=== PATIENT | female | born 1985 | race Caucasian/White ===

== ENCOUNTER → 2019-06-05 15:39 | Outpatient (CLI) | payer MEDICAID, SELFPAY ==
--- NOTE | 2019-06-05 15:44 | US_ITS ---
PROCEDURE: US TRANSVAGINAL CLINICAL INDICATION: pelvic pain/ ovarian cyst COMPARISON: No exams were available for comparison FINDINGS: The uterus is 10 by by 6 cm with a combined endometrial thickness 5 mm. IUD present. There is an IUD present which appears to be in satisfactory position. Endometrium is somewhat difficult to evaluate with an IUD in place. The right ovary is 3 x 2 cm containing small follicles with blood flow present. The left ovary is 4 x 3 cm also containing small follicles with blood flow present. There is a 16 mm left ovarian cyst. No cul-de-sac fluid evident. IMPRESSION: IUD present. Small left ovarian cyst otherwise negative pelvic ultrasound Dictated by: Anastacio Langford MD 06/05/2019 18:08 Electronically signed by Anastacio Langford MD in [place] 06/05/2019 18:08
== END ==
PROVIDERS: PCP Pediatrics; Visit Provider Nurse Practitioner Obstetrics & Gynecology
DX: R10.2 Pelvic and perineal pain (principal)
CPT/HCPCS: 76830

== ENCOUNTER 2019-08-05 13:54 | Emergency (ER) | payer MEDICAID, SELFPAY ==
[2019-08-05 13:56] VITALS: BP 147/87; PULSE 88; RESP 19; TEMP 37.1; O2SAT 100; BMI 23.8
[2019-08-05 14:34] LABS: UTC Influenza A Antigen Negative (Negative); UTC Strep Screen (Rapid) Negative (Negative)
[2019-08-05 14:35] LABS: UTC Influenza B Antigen Negative (Negative)
--- NOTE | 2019-08-05 14:38 | HMH.EDUTC ---
[facility] [place] Clinical Impression: Viral syndrome Disposition: Home, Self-Care Condition on Discharge: Good Instructions: Sore Throat, DI for Viral Syndrome, DI for Fever (Symptom) -- Adult, Preventing the Spread of Coronavirus Discharge Instructions Additional Instructions: Make sure to go home and self isolate away from family and other people, if you have a room that has a bathroom in that is where you need to stay and have someone bring you food in disposable dishes. *You was given a card with instructions for COVID19 make sure to read and follow those instructions *They will contact you in the next couple of days with your test results. No work until results are back and and are negative and you are fever free for 24 hours without medication *Follow up with family doctor if needed Straight to ER if any life threatening symptoms Referrals: Keshia Silva [Primary Care Provider] - As needed Forms: Work/School Release Time of Disposition: 15:13 Medical Decision Making - Sharan Inquiry Pt receiving controlled substance: No Sharan was queried for this patient: No Vital Signs: 08/05/19 13:56 Temperature 98.7 F Temperature Source Oral Pulse Rate [Radial] 88 Respiratory Rate 19 Blood Pressure [Right Arm] 147/87 H Blood Pressure Mean [Right Arm] 107 Blood Pressure Source [Right Arm] Automatic Cuff Blood Pressure Position [Right Arm] Sitting 02 Sat by Pulse Oximetry 100 Oxygen Delivery Method Room Air - Lab Data Lab results reviewed: Yes: I reviewed the patient's lab results. Lab Results 08/05/19 14:18: Influenza Type A Ag Negative, Influenza Type B Ag Negative 08/05/19 14:18: Strep Scn Rapid Clinic Negative Orders (Tests/Meds): ORDERS Category Date Time Status SARS-CoV-2, TODD Stat Lab 08/05/19 14:32 Ordered Strep Screen Confirmation Stat Micro 08/05/19 14:18 [place] [facility] [place] - General Stated complaint: DEAN,stiffness Time Seen by Provider: 08/05/19 14:10 Mode of Arrival: Ambulatory Source of Information: Patient Limitations: No Limitations Description of Symptoms (Recalled from Triage Doc. by RN): stiff neck, fever, chills, body aches HEENT Symptoms (Recalled from RN notes): No Resp Symptoms (Recalled from RN notes): No Skin Symptoms (Recalled from RN notes): No MS Symptoms (Recalled from RN notes): Yes Functional Status (Recalled from RN notes): wnl - History of Present Illness Provider Complaint: Patient states that she started feeling bad a little while back but around 08/01 she started having body ache, muscle tension and fever State that her throat has been sore and and she has been having fever on and off States that over the last few days she is feeling worse, States that she is feeling tired and and achy all over States that she has been having muscle aches up in her neck, shoulders and back and when her fever is up the aches are worse. State that she felt stiff all over States that she is able to move neck and shoulders just feels achy and over all does not feel well. Denies cough or shortness of breath States that she noticed yesterday that her taste was off and she was concerned with COVID19 - Related Data Home Medications Medication Instructions Recorded Confirmed buprenorphine HCl 8 mg sublingual mg SUBLINGUAL 06/01/19 06/01/19 tablet Previous Rx's Medication Instructions Recorded Ibuprofen [Ibuprofen 600mg Tab] 600 mg PO Q6HP PRN #20 tab 05/18/19 Allergies Allergy/AdvReac Type Severity Reaction Status Date / Time No Known Allergies Allergy Verified 06/01/19 10:08 - Worker's Comp Is this a Worker's Comp case?: No [facility] History - Hepatitis A Screen Drug use history?: No High risk sexual behaviors?: No History of sexually transmitted infection?: No Currently employed?: No Childcare worker?: No Do you have indoor plumbing?: Yes Do you have electricity?: Yes Attestation statement:: This patient has been screened for Hepatitis A risk factors.
[2019-08-05 15:20] VITALS: BP 147/87; PULSE 88; RESP 19; TEMP 37.1; O2SAT 100
[2019-08-06 17:20] LABS: Covid-19 Nasal PCR Sendout Lex Not Detected
--- NOTE | 2019-08-06 17:21 | PC.NURSE ---
notified pt and provider of negative covid results
== END 2019-08-05 15:21 | disposition home or self-care (01) ==
PROVIDERS: Emergency Provider Nurse Practitioner; PCP Pediatrics
DX: B34.9 Viral infection, unspecified (principal)
CPT/HCPCS: 87804; 87880; 99202; U0003

== ENCOUNTER 2021-05-11 17:00 | Emergency (ER) | payer OTHER, MEDICAID, SELFPAY ==
[2021-05-11 17:01] VITALS: BP 153/97; PULSE 82; RESP 16; TEMP 36.9; O2SAT 100; BMI 25.5
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
[2021-05-11 18:42] VITALS: BP 153/97; PULSE 82; RESP 16; TEMP 36.9; O2SAT 98
== END 2021-05-11 18:42 | disposition home or self-care (01) ==
PROVIDERS: Emergency Provider Nurse Practitioner Family; PCP Pediatrics
DX: M54.6 Pain in thoracic spine (principal); M54.50 Low back pain, unspecified; V89.2XXA Person injured in unspecified motor-vehicle accident, traffic, initial encounter
CPT/HCPCS: 72050; 72070; 72110; 99202; G0463

== ENCOUNTER 2021-12-08 15:36 | Emergency (ER) | payer MEDICAID, SELFPAY ==
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
[2021-12-08 16:07] VITALS: BP 114/80; PULSE 97; RESP 16; TEMP 37.2; O2SAT 100; BMI 25.0
[2021-12-08 17:36] VITALS: BP 114/80; PULSE 97; RESP 16; TEMP 37.2
== END 2021-12-08 17:41 | disposition home or self-care (01) ==
PROVIDERS: Emergency Provider Nurse Practitioner Family; PCP Pediatrics
DX: L03.116 Cellulitis of left lower limb (principal); B96.1 Klebsiella pneumoniae [K. pneumoniae] as the cause of diseases classified elsewhere; B96.5 Pseudomonas (aeruginosa) (mallei) (pseudomallei) as the cause of diseases classified elsewhere; F17.290 Nicotine dependence, other tobacco product, uncomplicated; Z79.1 Long term (current) use of non-steroidal anti-inflammatories (NSAID); Z79.899 Other long term (current) drug therapy
CPT/HCPCS: 96372; 99213; G0463; J0696

== ENCOUNTER 2022-04-28 16:08 | Emergency (ER) | payer OTHER, SELFPAY ==
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
[2022-04-28 17:10] VITALS: BP 111/67; PULSE 70; RESP 18; TEMP 37; O2SAT 98; BMI 25.0
--- NOTE | 2022-04-28 17:23 | EXP.UTC ---
Discharge Plan Disposition Patient Disposition: Home, Self-Care Condition: Good Prescriptions Prescriptions: No Action Mirena 20 mcg/24 hours (5 yrs) 52 mg intrauterine device INTRAUTERI buprenorphine HCl 8 mg tablet, sublingual SUBLINGUAL Label Comments: PLACE 1 AND 1/2 TABLETS UNDER THE TONGUE AND ALLOW TO DISSOLVE 1 TIMEEACH DAY. sulfamethoxazole-trimethoprim [Bactrim] 400-80 mg tablet 1 tab PO DAILY clindamycin HCl 300 mg capsule 300 mg PO Q8H metronidazole 500 mg tablet 500 mg PO BID 7 Days Qty: 14 0RF metronidazole 500 mg tablet 500 mg PO BID 5 Days Qty: 10 0RF ciprofloxacin HCl [Cipro] 500 mg tablet 500 mg PO BID Qty: 20 0RF doxycycline monohydrate 100 mg capsule 100 mg PO BID 10 Days Qty: 20 0RF mupirocin 2 % ointment 1 applic topical TID 7 Days Qty: 1 0RF cyclobenzaprine 10 MG tablet 10 mg PO BIDP PRN (Reason: Muscle Spasm) Qty: 30 0RF ibuprofen 800 MG tablet 800 mg PO Q8HP PRN (Reason: Moderate Pain) Qty: 30 0RF Referrals Follow up/Referrals: Franky Herring [Primary Care Provider] - See instructions Activity Restrictions/Add. Instructions Additional Instructions/Restrictions: *RICE, Rest the extremity, Ice 15-20 minutes 3-4 times daily, Compress- wear the efrain wrap as discussed as much as possible to help reduce swelling and pain, Elevate the extremity when at rest No lifting pulling or tugging until Tuesday05/03/22 *Elevate when resting? *Ibuprofen 600-800mg every 6-8 hours as needed for pain an inflammation. If need something more can take Tylenol in between doses of Ibuprofen to help Over the counter Muscle rubs may help with pain and muscle soreness Clinical Impressions Clinical Impression: Contusion of right shoulder Qualifiers: Encounter type: initial encounter Qualified Code(s): S40.011A - Contusion of right shoulder, initial encounter Instructions Patient Instructions: How To Perform RICE (Rest, Ice, Compress, Elevate), DI for Shoulder Pain Discharge ED Provider: Belgica Huggins [facility] [place] HPI General Stated complaint: WC 04/27@1400Fell injured R Shoulder Time Seen by Provider: 04/28/22 17:31 History of Present Illness Provider Complaint: Patient states that she was in the shower room at work when she slipped and fell and landed on her right shoulder States that she has been having pain in her right shoulder ever since that is worse with movement at times States that today when she was still having pain she came in to get it checked Related Data Home Medications Medication Instructions Recorded Confirmed buprenorphine HCl 8 mg sublingual mg sublingual 06/01/19 09/02/21 tablet levonorgestrel 20 mcg/24 hours (8 intrauterine 10/02/19 09/02/21 yrs) 52 mg intrauterine device (Mirena) clindamycin HCl 300 mg capsule 300 mg PO Q8H 08/17/21 09/02/21 sulfamethoxazole 400 1 tab PO DAILY 08/17/21 09/02/21 mg-trimethoprim 80 mg tablet (Bactrim) Previous Rx's Medication Instructions Recorded metronidazole 500 mg tablet 500 mg PO BID 5 days #10 tabs 02/23/21 cyclobenzaprine 10 mg tablet 10 mg PO BIDP PRN Muscle Spasm #30 05/11/21 tabs ibuprofen 800 mg tablet 800 mg PO Q8HP PRN Moderate Pain 05/11/21 #30 tabs metronidazole 500 mg tablet 500 mg PO BID 7 days #14 tabs 08/21/21 ciprofloxacin HCl 500 mg tablet 500 mg PO BID #20 tabs 12/08/21 (Cipro) doxycycline monohydrate 100 mg 100 mg PO BID 10 days #20 caps 12/08/21 capsule mupirocin 2 % topical ointment 1 applic topical TID 7 days #1 g 12/08/21 Allergies Allergy/AdvReac Type Severity Reaction Status Date / Time No Known Allergies Allergy Verified 12/08/21 16:[address] [facility] Disclaimer: The information contained in this section may have been updated after the patient was seen, as this information can be updated by other users. Medical History (Updated 04/28/22 @ 17:31 by Belgica Huggins APRN) No significant past medical history S
[2022-04-28 17:28] VITALS: BP 111/67; PULSE 70; RESP 18; TEMP 37; O2SAT 98
== END 2022-04-28 17:34 | disposition home or self-care (01) ==
PROVIDERS: Emergency Provider Nurse Practitioner; PCP Pediatrics
DX: S40.011A Contusion of right shoulder, initial encounter (principal); W18.2XXA Fall in (into) shower or empty bathtub, initial encounter
CPT/HCPCS: 73030; 99212; G0463

== ENCOUNTER 2022-11-20 16:24 | Emergency (ER) | payer MEDICAID, SELFPAY ==
[2022-11-20 16:40] VITALS: BP 134/88; PULSE 93; RESP 18; TEMP 37.2; O2SAT 98; BMI 25.2
--- NOTE | 2022-11-20 17:00 | EXP.UTC ---
Discharge Plan Disposition Patient Disposition: Home, Self-Care Condition: Good Prescriptions Prescriptions: No Action Mirena 20 mcg/24 hours (5 yrs) 52 mg intrauterine device INTRAUTERI buprenorphine HCl 8 mg tablet, sublingual SUBLINGUAL Patient Comments: PLACE 1 AND 1/2 TABLETS UNDER THE TONGUE AND ALLOW TO DISSOLVE 1 TIMEEACH DAY. sulfamethoxazole-trimethoprim [Bactrim] 400-80 mg tablet 1 tab PO DAILY clindamycin HCl 300 mg capsule 300 mg PO Q8H metronidazole 500 mg tablet 500 mg PO BID 7 Days Qty: 14 0RF metronidazole 500 mg tablet 500 mg PO BID 5 Days Qty: 10 0RF ciprofloxacin HCl [Cipro] 500 mg tablet 500 mg PO BID Qty: 20 0RF doxycycline monohydrate 100 mg capsule 100 mg PO BID 10 Days Qty: 20 0RF mupirocin 2 % ointment 1 applic topical TID 7 Days Qty: 1 0RF cyclobenzaprine 10 MG tablet 10 mg PO BIDP PRN (Reason: Muscle Spasm) Qty: 30 0RF ibuprofen 800 MG tablet 800 mg PO Q8HP PRN (Reason: Moderate Pain) Qty: 30 0RF Referrals Follow up/Referrals: Franky Herring [Primary Care Provider] - See instructions Activity Restrictions/Add. Instructions Additional Instructions/Restrictions: covid swab was sent to lab, call tomorrow for results. self isolate until test results are known to be negative No sign of a bacterial infection. Likely viral. Viruses can take 7-14 days to run their course. Nasal saline and bulb syringe or nose Sophia to remove nasal drainage to help with nasal congestion. Hard to eat, drink, sleep with nasal congestion so important to keep this cleaned out. Monitor temp. Tylenol or Motrin as needed for pain or fever Encourage fluids, water, Gatorade, Powerade, Pedialyte if /toddler/child Warm salt water gargles Warm fluids Sore throat lozenges Sleep elevated Humidifier/vaporizer Follow-up immediately for new or worsening symptoms or no noticeable improvement over the next 48-72 hours. Clinical Impressions Clinical Impression: COVID-19 Upper respiratory infection Qualifiers: URI type: unspecified viral URI Qualified Code(s): J06.9 - Acute upper respiratory infection, unspecified Instructions Patient Instructions: DI for Viral Upper Respiratory Infection -- Adult Discharge ED Provider: Misael ([facility] HPI General Stated complaint: exposed to covid Mode of Arrival: Ambulatory Source of Information: Patient Limitations: No Limitations Time Seen by Provider: 11/20/22 17:00 HEENT Symptoms (Recalled from RN notes): Yes History of Present Illness Provider Complaint: 37 yr old female presents for sore throat,congestion for 2 weeks, has been exposed to covid Related Data Home Medications Medication Instructions Recorded Confirmed buprenorphine HCl 8 mg sublingual mg sublingual 06/01/19 09/02/21 tablet levonorgestrel 21 mcg/24 hours (8 intrauterine 10/02/19 09/02/21 yrs) 52 mg intrauterine device (Mirena) clindamycin HCl 300 mg capsule 300 mg PO Q8H 08/17/21 09/02/21 sulfamethoxazole 400 1 tab PO DAILY 08/17/21 09/02/21 mg-trimethoprim 80 mg tablet (Bactrim) Previous Rx's Medication Instructions Recorded metronidazole 500 mg tablet 500 mg PO BID 5 days #10 tabs 02/23/21 cyclobenzaprine 10 mg tablet 10 mg PO BIDP PRN Muscle Spasm #30 05/11/21 tabs ibuprofen 800 mg tablet 800 mg PO Q8HP PRN Moderate Pain 05/11/21 #30 tabs metronidazole 500 mg tablet 500 mg PO BID 7 days #14 tabs 08/21/21 ciprofloxacin HCl 500 mg tablet 500 mg PO BID #20 tabs 12/08/21 (Cipro) doxycycline monohydrate 100 mg 100 mg PO BID 10 days #20 caps 12/08/21 capsule mupirocin 2 % topical ointment 1 applic topical TID 7 days #1 g 12/08/21 Allergies Allergy/AdvReac Type Severity Reaction Status Date / Time No Known Allergies Allergy Verified 12/08/21 16:13 [facility] Disclaimer: The information contained in this section may have been updated after the patient was seen, as this inf
[2022-11-20 17:14] VITALS: BP 134/88; PULSE 93; RESP 18; TEMP 37.2; O2SAT 98
[2022-11-20 17:19] LABS: UTC Strep Screen (Rapid) Negative (Negative)
== END 2022-11-20 17:20 | disposition home or self-care (01) ==
PROVIDERS: Emergency Provider Nurse Practitioner Family; PCP Pediatrics
DX: J06.9 Acute upper respiratory infection, unspecified (principal); R07.0 Pain in throat; F17.290 Nicotine dependence, other tobacco product, uncomplicated; Z20.822 Contact with and (suspected) exposure to COVID-19
CPT/HCPCS: 87880; 99212; 99213; G0463

== ENCOUNTER 2022-12-21 16:30 | Outpatient (RCR) | payer MEDICAID, SELFPAY | END 2022-12-21 17:30 | disposition home or self-care (01) | LOC: PT 16:30 | PROVIDERS: Visit Provider Surgery | DX: L97.929 Non-pressure chronic ulcer of unspecified part of left lower leg with unspecified severity (principal); I83.813 Varicose veins of bilateral lower extremities with pain | CPT/HCPCS: 97163; 97164; 97597 ==

== ENCOUNTER 2023-05-06 14:40 | Outpatient (CLI) | payer MEDICAID, SELFPAY ==
--- NOTE | 2023-05-06 14:40 | US_ITS ---
PROCEDURE: US TRANSVAGINAL CLINICAL INDICATION: Pelvic Pain COMPARISON: No exams were available for comparison FINDINGS: Transvaginal sonographic images of the pelvis were obtained. UTERUS: 9.2cm x 6.1cmx 4.0cm anteverted with a combined endometrial thickness of 4.5mm. An IUD is in the correct position within the uterine cavity. LEFT OVARY: 1.0cmx2.0cmx2.3cm with a volume of 2.4ml. RIGHT OVARY: 3.5cmx 3.1cmx1.9 cm with a volume of 10.6ml. Within the right ovary is a complex area measuring 1.9 cm x 1.4 cm x 2.3 cm. This is likely a corpus luteum with a small amount of blood clot. Both ovaries are seen and appear normal. Doppler flow to both ovaries are seen. There is no fluid in the cul-de-sac. IMPRESSION: 1. Anteverted slightly enlarged uterus. The endometrium is thin. Within the uterine cavity is an IUD in the correct position. 2. Both ovaries are seen and appear normal. Within the right ovary is a 2.3 cm complex area likely consistent with a corpus luteum. 3. No fluid in the cul-de-sac. Dictated by: Hernandez Luu MD 05/07/2023 07:13 Hernandez Luu MD in [place] 05/07/2023 07:13
== END 2023-05-06 23:59 ==
LOC: RAD 14:40
PROVIDERS: PCP Pediatrics; Visit Provider Obstetrics & Gynecology
DX: R10.2 Pelvic and perineal pain (principal)
CPT/HCPCS: 76830

== ENCOUNTER 2023-05-09 16:06 | Emergency (ER) | payer MEDICAID, SELFPAY ==
--- NOTE | 2023-05-09 17:05 | ED_ITS ---
Discharge Plan Disposition Patient Disposition: Home, Self-Care Condition: Good Prescriptions Prescriptions: New amoxicillin [amoxicillin] 875 mg tablet 875 mg PO Q12H Qty: 20 0RF lewcwxfrmjrgwlt-urvykgnar-OR [Bromfed DM] 2-30-10 mg/5 mL Syrup 5 ml PO Q6H PRN (Reason: Cough) Qty: 240 0RF methylprednisolone 4 mg Tablets,Dose Pack 4 mg PO DIRECTED 6 Days Qty: 21 0RF Rx Instructions: Take 1 pack as directed for 6 days No Action Mirena 20 mcg/24 hours (5 yrs) 52 mg intrauterine device INTRAUTERI fluoxetine 20 mg capsule 20 mg PO DAILY hydrochlorothiazide 12.5 mg capsule 12.5 mg PO PRN potassium chloride 10 mEq capsule, extended release 10 meq PO DAILY buprenorphine HCl 8 mg tablet, sublingual SUBLINGUAL Patient Comments: PLACE 1 AND 1/2 TABLETS UNDER THE TONGUE AND ALLOW TO DISSOLVE 1 TIMEEACH DAY. doxycycline monohydrate 100 mg capsule 100 mg PO BID 10 Days Qty: 20 0RF ibuprofen 800 MG tablet 800 mg PO Q8HP PRN (Reason: Moderate Pain) Qty: 30 0RF Referrals Follow up/Referrals: Franky Herring [Primary Care Provider] - See instructions Activity Restrictions/Add. Instructions Additional Instructions/Restrictions: Drink plenty of fluids. Take tylenol or ibuprofen for pain or fever. Take the medications as directed. Follow up with your regular doctor. GO TO THE ER FOR ANY WORSENING SYMPTOMS Throw your tooth brush away and get a new one. Clinical Impressions Clinical Impression: Strep throat Stand Alone Forms Stand Alone Forms: Work/School Release Instructions Patient Instructions: Strep Throat, DI for Strep Throat, Amoxicillin Discharge ED Provider: Kit Pierson [facility] [place] HPI General Stated complaint: sore throat, blisters in back of throat Time Seen by Provider: 05/09/23 17:05 History of Present Illness Provider Complaint: She c/o sore throat, fever and malaise for the past 2 days. Related Data Home Medications Medication Instructions Recorded Confirmed buprenorphine HCl 8 mg sublingual mg sublingual 06/01/19 05/03/23 tablet levonorgestrel 21 mcg/24 hours (8 intrauterine 10/02/19 05/03/23 yrs) 52 mg intrauterine device (Mirena) fluoxetine 20 mg capsule 20 mg PO DAILY 05/03/23 05/03/23 hydrochlorothiazide 12.5 mg capsule 12.5 mg PO PRN 05/03/23 05/03/23 potassium chloride 10 mEq 10 meq PO DAILY 05/03/23 05/03/23 capsule,extended release Previous Rx's Medication Instructions Recorded ibuprofen 800 mg tablet 800 mg PO Q8HP PRN Moderate Pain 05/11/21 #30 tabs doxycycline monohydrate 100 mg 100 mg PO BID 10 days #20 caps 12/08/21 capsule amoxicillin 875 mg tablet 875 mg PO Q12H #20 tabs 05/09/23 xwxpfeaecdoijny-zgkdzikacekkrtf-WM 5 ml PO Q6H PRN Cough #240 mL 05/09/23 2 mg-30 mg-10 mg/5 mL oral syrup (Bromfed DM) methylprednisolone 4 mg tablets in 4 mg PO DIRECTED 6 days #21 tabs 05/09/23 a dose pack Allergies Allergy/AdvReac Type Severity Reaction Status Date / Time No Known Allergies Allergy Verified 05/03/23 09:35 [facility] Disclaimer: The information contained in this section may have been updated after the patient was seen, as this information can be updated by other users. Medical History (Updated 05/09/23 @ 17:24 by Kit Pierson APRN) Acute abdominal pain Chronic constipation No significant past medical history Vaginal discharge Surgical History No significant past surgical history Family History (Updated 05/03/23 @ 09:41 by Daphney Green CMA) Other Cancer Social History Smoking Status: Current every day smoker tobacco type: e-cigarettes second hand exposure: Yes alcohol intake: current current occupational status: other Travel in the last 8 weeks: None housing: house ROS Obtained: Yes All systems reviewed & no additional complaints except as documented Constitutional Constitutional: Reports chills and Reports fever(s) Eyes Eyes: Denies eye discharge ENT Ears, Nose, Mouth, and Throat: Reports as per HPI Cardiovascular Cardiovascular: Denies chest pain Respiratory Respiratory: Denies chest congestion and Reports cough Gastrointestinal Gastrointestingal: Reports nausea; Denies abdominal pain, constipation, cramping, diarrhea or vomiting Musculoskeletal Musculoskeletal: Denies arthralgias Integumentary/Breasts Skin/Breast: Denies rash Neurologic Neurologic: Denies paresthesias Physical Exam General General appearance: alert and in no apparent distress Head Head exam: atraumatic, normocephalic and normal inspection Eye Eye exam: Present normal appearance, PERRL and EOMI ENT ENT exam: Present mucous membranes moist and normal external ear exam Expanded ENT Exam TM/Canal exam: Bilateral TM: erythema and bulging Nose exam: Absent sinus tenderness Mouth exam: Present normal external inspection; Absent drooling Teeth exam: Present normal inspection Throat exam: Present tonsillar erythema, tonsillomegaly and tonsillar exudate Neck Neck exam: Present normal inspection, full ROM and trachea midline; Absent tenderness, meningismus or lymphadenopathy Chest Chest inspection: Present normal inspection and symmetric chest wall rise; Absent tenderness Respiratory Respiratory exam: Present normal lung sounds bilaterally; Absent respiratory distress, wheezes or stridor Cardiovascular Cardiovascular exam: Present regular rate and normal rhythm; Absent systolic murmur or diastolic murmur Abdominal Exam Abdominal exam: Present soft and normal bowel sounds; Absent distention, tenderness, guarding, rebound or rigidity Extremities Exam Extremities exam: Present normal inspection and normal capillary refill; Absent calf tenderness Back Exam Back exam: Present normal inspection and full ROM; Absent tenderness, CVA tenderness (R) or CVA tenderness (L) Neurological Exam Neurological exam: Present alert, oriented X3 and CN II-XII intact Psychiatric Psychiatric exam: Present normal affect and normal mood Skin Skin exam: Present warm, dry, intact and normal color Medical Decision Making Medical Records Medical records reviewed: No I reviewed the patient's medical records. Sharan Inquiry Pt receiving controlled substance: No Lab Data Lab results reviewed: Yes I reviewed the patient's lab results.
[2023-05-09 17:06] VITALS: BP 136/80; PULSE 73; RESP 16; TEMP 36.8; O2SAT 99; BMI 25.0
[2023-05-09 17:18] LABS: UTC Strep Screen (Rapid) Positive (Negative)
[2023-05-09 17:30] VITALS: BP 136/80; PULSE 73; RESP 16; TEMP 36.8
== END 2023-05-09 17:32 | disposition home or self-care (01) ==
PROVIDERS: Emergency Provider Nurse Practitioner Family; PCP Pediatrics
DX: J02.0 Streptococcal pharyngitis (principal); R07.0 Pain in throat; R50.9 Fever, unspecified; R53.81 Other malaise; F17.290 Nicotine dependence, other tobacco product, uncomplicated
CPT/HCPCS: 87880; 99212; 99214; G0463

== ENCOUNTER 2024-04-05 11:21 | Emergency (ER) | payer OTHER, SELFPAY ==
[2024-04-05 11:52] VITALS: BP 167/78; PULSE 103; RESP 18; TEMP 36.6; O2SAT 97; BMI 25.0
[2024-04-05 11:57] LABS: Apearance,Urine Clear (Clear); Bilirubin,Urine Negative (Negative); Blood, Urine 1+ (Negative); Color,Urine Yellow (Yellow); Glucose,Urine (UA) Negative (Negative); Ketones,Urine Negative (Negative); Protein,Urine Negative (Negative); UTC Leukocyte Esterase,Urine 3+ (Negative); UTC Nitrate,Urine Negative (Negative); Urobilinogen,Urine 0.2 EU/dl (0.2)
--- NOTE | 2024-04-05 12:15 | EXP.UTC ---
Discharge Plan Disposition Patient Disposition: Home, Self-Care Condition: Good Prescriptions Prescriptions: New phenazopyridine [Pyridium] 200 mg tablet 200 mg PO Q8H 2 Days Qty: 6 0RF ondansetron 4 mg Tablet,Disintegrating 4 mg PO Q8H PRN (Reason: Nausea) Qty: 8 0RF nitrofurantoin monohyd/m-cryst [Macrobid] 100 mg Capsule 100 mg PO BID Qty: 10 0RF Rx Instructions: must administer with a meal/food No Action buprenorphine HCl 8 mg tablet, sublingual 8 mg SUBLINGUAL DAILY Patient Comments: PLACE 1 AND 1/2 TABLETS UNDER THE TONGUE AND ALLOW TO DISSOLVE 1 TIMEEACH DAY. ibuprofen 800 MG tablet 800 mg PO Q8HP PRN (Reason: Moderate Pain) Qty: 30 0RF hydroxyzine HCl 25 mg tablet 25 mg PO DAILY Patient Comments: TAKE 1 TABLET BY MOUTH THREE TIMES DAILY NEEDED Referrals Follow up/Referrals: Franky Herring [Primary Care Provider] - See instructions Activity Restrictions/Add. Instructions Additional Instructions/Restrictions: Drink plenty of fluids. Take tylenol or ibuprofen for pain or fever. Take the medications as directed. Follow up with your regular doctor. GO TO THE ER FOR ANY WORSENING SYMPTOMS The pyridium will make your urine turn orange, this is an expected side effect. It will stain your clothes if it comes into contact with them. We will culture the urine. That will tell what bacteria is causing your infection and which antibiotics will treat it best.This test takes 3 days to complete. Clinical Impressions Clinical Impression: UTI (urinary tract infection) Instructions Patient Instructions: Urine Culture, DI for Urinary Tract Infection (UTI), Phenazopyridine Print Language Print Language: Ethiopian Discharge ED Provider: Kit Pierson [facility] [place] General Stated complaint: pain and frequent urination Mode of Arrival: Ambulatory Source of Information: Patient Time Seen by Provider: 04/05/24 12:15 Description of Symptoms (Recalled from Triage Doc. by RN): UTI S/S, NEEDS TO LEAVE FOR APPOINTMENT BY 1300 HEENT Symptoms (Recalled from RN notes): No Resp Symptoms (Recalled from RN notes): No Skin Symptoms (Recalled from RN notes): No MS Symptoms (Recalled from RN notes): No Functional Status (Recalled from RN notes): WNL History of Present Illness Provider Complaint: She states that for the past 2 days she has had low back pain, dysuria and urinary frequency. Related Data Home Medications ?Medication ?Instructions ?Recorded ?Confirmed buprenorphine HCl 8 mg sublingual 8 mg sublingual DAILY 06/01/19 05/03/23 tablet hydroxyzine HCl 25 mg tablet 25 mg PO DAILY 04/05/24 04/05/24 Previous Rx's ?Medication ?Instructions ?Recorded ibuprofen 800 mg tablet 800 mg PO Q8HP PRN Moderate Pain 05/11/21 #30 tabs nitrofurantoin 100 mg PO BID #10 caps 04/05/24 monohydrate/macrocrystals 100 mg capsule (Macrobid) ondansetron 4 mg disintegrating 4 mg PO Q8H PRN Nausea #8 tabs 04/05/24 tablet phenazopyridine 200 mg tablet 200 mg PO Q8H 2 days #6 tabs 04/05/24 (Pyridium) Allergies Allergy/AdvReac Type Severity Reaction Status Date / Time No Known Allergies Allergy Verified 05/03/23 09:35 Worker's Comp Is this a Worker's Comp case?: No [facility] Disclaimer: The information contained in this section may have been updated after the patient was seen, as this information can be updated by other users. Medical History (Updated 04/05/24 @ 12:19 by Kit Pierson APRN) Chronic constipation Acute abdominal pain Vaginal discharge No significant past medical history Surgical History No significant past surgical history Family History (Updated 05/03/23 @ 09:41 by Daphney Green CMA) Other Cancer Social History Smoking Status: Current every day smoker tobacco type: e-cigarettes second hand exposure: Yes alcohol intake: current alcohol intake frequency: holidays/special occasions only current occupational status: other Travel in the last 8 weeks: None housing: house Have you lived/traveled outside [place] in past 30 days?: No Contact w/someone who lives/traveled outside [place] past 30 days?: No Exposure to someone with infectious disease in past 14 days?: No Do you have a fever (greater than 100.4 F or 38 C)?: No Have you tested positive for COVID-19: No Exposed to someone with COVID-19 in past 14 days?: No Do you have a sore throat?: No Do you have a cough?: No Do you have any weakness?: No Do you have any diarrhea?: No Are you experiencing any unusual bleeding?: No Do you have any muscle aches/pain?: No Do you have any abdominal pain?: No Are you experiencing loss of taste or smell?: No ROS Obtained: Yes All systems reviewed & no additional complaints except as documented Constitutional Constitutional: Reports system reviewed and no additional complaints, except as documented, Denies chills and Denies fever(s) Eyes Eyes: Denies eye discharge ENT Ears, Nose, Mouth, and Throat: Denies dysphagia, Denies sore throat and Denies throat swelling Cardiovascular Cardiovascular: Denies chest pain and Denies dyspnea Respiratory Respiratory: Denies chest congestion, Denies cough and Denies dyspnea Gastrointestinal Gastrointestingal: Denies abdominal pain, constipation, diarrhea, dysphagia, nausea or vomiting Genitourinary Female Genitourinary: Reports as per HPI, Reports dysuria, Reports urinary frequency, Denies urinary incontinence, Reports urinary hesitancy and Reports urinary urgency Musculoskeletal Musculoskeletal: Denies arthralgias and Reports back pain Integumentary/Breasts Skin/Breast: Denies rash Neurologic Neurologic: Denies paresthesias Allergic/Immunologic Allergic/Immunologic: Denies throat swelling Physical Exam General General appearance: alert and in no apparent distress Head Head exam: atraumatic and normocephalic Eye Eye exam: Present normal appearance, PERRL and EOMI ENT ENT exam: Present normal exam, mucous membranes moist, TM's normal bilaterally and normal external ear exam Neck Neck exam: Present normal inspection, full ROM and trachea midline; Absent tenderness, meningismus or lymphadenopathy Chest Chest inspection: Present normal inspection and symmetric chest wall rise; Absent tenderness Respiratory Respiratory exam: Present normal lung sounds bilaterally; Absent respiratory distress, wheezes or stridor Cardiovascular Cardiovascular exam: Present regular rate, normal rhythm and normal heart sounds Abdominal Exam Abdominal exam: Present soft and normal bowel sounds; Absent distention, tenderness, guarding, rebound, rigidity, incision, psoas sign, obturator sign, heel tap sign, Gillis's sign, Rovsing's sign or tenderness at McBurney's Point Extremities Exam Extremities exam: Present normal inspection, full ROM and normal capillary refill; Absent tenderness, edema, joint swelling, calf tenderness or cyanosis Back Exam Back exam: Present normal inspection and full ROM; Absent tenderness, CVA tenderness (R) or CVA tenderness (L) Neurological Exam Neurological exam: Present alert, oriented X3 and normal gait Psychiatric Psychiatric exam: Present normal affect and normal mood Skin Skin exam: Present warm, dry, intact and normal color Lymphatic Lymphatic Findings: no adenopathy Medical Decision Making Medical Records Medical records reviewed: No I reviewed the patient's medical records. Screening: Per USPSTF and CDC recommendations, given the prevalence of disease in our region, it is our hospital?s policy to screen for HIV and viral Hepatitis for all patients aged 18 and over and those with ongoing risk factors. Sharan Inquiry Pt receiving controlled substance: No Vital Signs: 04/05/24 11:52 Temperature 97.9 F Temperature Source Oral Pulse Rate [Left Radial] 103 H Respiratory Rate 18 Blood Pressure [Left Arm] 167/78 H Blood Pressure Mean [Left Arm] 107 02 Sat by Pulse Oximetry 97 Lab Data Lab results reviewed: Yes I reviewed the patient's lab results. Lab Results 04/05/24 11:56: Urine Color Yellow, Urine Appearance Clear, Urine pH 8.0, Ur Specific K[place] 1.020, Urine Protein Negative, Urine Glucose (UA) Negative, Urine Ketones Negative, Urine Blood 1+, Urine Nitrate Negative, Urine Bilirubin Negative, Urine Urobilinogen 0.2, Ur Leukocyte Esterase 3+ A Orders (Tests/Meds): ORDERS Category Date Time Status Urine Culture Stat Micro 04/05/24 11:47 Received
[2024-04-05 12:27] VITALS: BP 167/78; PULSE 103; RESP 18; TEMP 36.6
== END 2024-04-05 12:28 | disposition home or self-care (01) ==
PROVIDERS: Emergency Provider Nurse Practitioner Family; PCP Pediatrics
DX: N39.0 Urinary tract infection, site not specified (principal)
CPT/HCPCS: 81003; 87086; 99213; G0381